=== PATIENT | male | born 1995 ===

== ENCOUNTER 2017-06-07 21:51 | Emergency (ER) | payer SELFPAY ==
[2017-06-07 22:20] VITALS: BP 124/73
--- NOTE | 2017-06-08 02:17 | XRay Report ---
FINAL REPORT EXAM: XR CHEST ROUTINE 2V HISTORY: chest pain intermittent worse with leaning forward TECHNIQUE: PA and lateral views of the chest were submitted. FINDINGS: Heart size an mediastinum appear normal. The lungs are clear. Pleural fluid is not seen. The bones and soft tissues do not show any acute changes. IMPRESSION: No active chest disease.
--- NOTE | 2017-06-08 02:36 | Emergency Department Report ---
HPI - General Chief Complaint: Chest Pain Time Seen by Provider: 06/08/17 01:36 - HPI HPI: 21-year-old -[place] male comes in for intermittent chest pain that lasts less than 5 seconds has been going on for months. Patient reports this is worse when he leans over. Patient denies any chest pain during examination and interview. He has no primary care no past medical history denies any cough denies any fever and no nausea no vomiting. He denies any trauma to the chest no recent cold symptoms. ED Past Medical Hx - Past Medical History Previous Medical History?: No - Surgical History Past Surgical History?: No - Social History Smoking Status: Never Smoker Substance Use Type: Alcohol ED Review of Systems ROS: Stated complaint: CP/SOB CHRONIC Other details as noted in HPI Constitutional: denies: chills, fever Eyes: denies: eye pain, eye discharge, vision change ENT: denies: ear pain, throat pain Respiratory: denies: cough, shortness of breath, wheezing Cardiovascular: chest pain (intermittent chest pain), palpitations Endocrine: no symptoms reported Gastrointestinal: denies: abdominal pain, nausea, diarrhea Genitourinary: denies: urgency, dysuria Musculoskeletal: denies: back pain, joint swelling, arthralgia Skin: denies: rash, lesions Neurological: denies: headache, weakness, paresthesias Psychiatric: denies: anxiety, depression Hematological/Lymphatic: denies: easy bleeding, easy bruising Physical Exam - Physical Exam Vital Signs: Vital Signs 06/07/17 22:18 Temperature 98.1 F Pulse Rate 86 Respiratory 16 Rate Blood Pressure 124/73 O2 Sat by Pulse 99 Oximetry Physical Exam: GENERAL: Alert and oriented x3, no apparent distress, Normal Gait, atraumatic. HEAD: Head is normocephalic and a-traumatic. EYES: Extra ocular muscles are intact. Pupils are equal, round, and reactive to light and accommodation. NECK: Supple. Non edematous, No carotid bruits. No lymphadenopathy or thyromegaly. LUNGS: Symetrical with respiration, No wheezing, no rales or crackles, CTAB. HEART: S1, S2 present, regular rate and rhythm without murmur, no rubs, no gallops. EXTREMITIES/MUSCULOSKELETAL: No cyanosis, clubbing, rash, lesions or edema. Full ROM bilaterally. UE/LE Pulses 2+ bilaterally. LE and UE 5+ strength bilaterally NEUROLOGIC: No focal Deficit, Cranial nerves II through XII are grossly intact. No loss of sensation, No facial droop, . PSYCHIATRIC: Mood is congruent with affect, denies suicidal or homicidal ideations. SKIN: Warm and dry, No lesions, No ulceration or induration present ED Course Vital Signs 06/07/17 22:18 Temperature 98.1 F Pulse Rate 86 Respiratory 16 Rate Blood Pressure 124/73 O2 Sat by Pulse 99 Oximetry ED Medical Decision Making - Medical Decision Making Patient has been evaluated by this provider fast track. Patient complains of intermittent chest pain has been going on for over a few months. EKG no ischemia noted, chest x-ray no cardiopulmonary disease. I discussed the patient needs to follow up with the primary care provider for further evaluation and workup. Patient verbalized understanding. Critical care attestation.: If time is entered above; I have spent that time in minutes in the direct care of this critically ill patient, excluding procedure time. ED Disposition Clinical Impression: Atypical chest pain Disposition: DC-01 TO HOME OR SELFCARE Is pt being admited?: No Does the pt Need Aspirin: No Condition: Stable Instructions: Chest Pain (ED) Additional Instructions: Please follow-up with her primary care provider I have listed several below. Referrals: PRIMARY CARE, [Primary Care Provider] - 3-5 Days [facility] [Provider Group] - 3-5 Days [facility] [Provider Group] - 3-5 Days Forms: Work/School Release Form(ED)
== END 2017-06-08 02:43 | disposition home or self-care (01) ==
LOC: ED 21:51
DX: R07.89 Other chest pain (principal)
CPT/HCPCS: 71046; 93005; 93010; 99283